=== PATIENT | female | born 1970 | race Caucasian/White ===

== ENCOUNTER 2016-09-05 13:19 | Emergency (ER) | payer SELFPAY ==
[~2016-09-05] VITALS: Ht 172.7 cm; Wt 136.0 kg
[2016-09-05 13:27] VITALS: BP 139/82; PULSE 106; RESP 16; TEMP 98.5; O2SAT 97
--- NOTE | 2016-09-05 13:43 | PD ---
HPI Chief Complaint: Abdominal Pain Time Seen by Provider: 13:32 Travel History International Travel<30 days: No Contact w/Intl Traveler<30days: No Traveled to known affect area: No History of Present Illness HPI 46 y/o female presents with constipation for which she took enema, Gas-X and other [id number] constipation medications that resulted in her having a bowel movement and now diarrhea. She states then she got nauseous and threw up and is now having lower abdominal pain. She went to an urgent care and was referred here. Quality pain is sharp. Location is lower. Severity is severe per patient. Quality is crampy. Duration is couple of days. PFSH Past Medical History Medical History: Denies Significant Hx ?: Not Past Surgical History Cholecystectomy: Yes Hysterectomy: Yes Social History Tobacco Use: No Allergies-Medications (Allergen,Severity, Reaction): Coded Allergies: Percocet (Verified Allergy, Unknown, Itching, 09/05/16) Reported Meds & Prescriptions Reported Meds & Active Scripts Active Phenergan (Promethazine HCl) 25 Mg Tablet 25 Mg PO Q6H PRN Flagyl (Metronidazole) 500 Mg Tab 500 Mg PO BID 7 Days Ciprofloxacin (Ciprofloxacin HCl) 500 Mg Tab 500 Mg PO BID 7 Days Review of Systems Except as stated in HPI: all other systems reviewed are Neg Physical Exam Narrative GENERAL: Well-nourished, well-developed patient. SKIN: Warm and dry. HEAD: Normocephalic and atraumatic. EYES: No injection or drainage. ENT: No nasal drainage noted. NECK: Supple, trachea midline. CARDIOVASCULAR: Regular rate and rhythm RESPIRATORY: no increased effort. No accessory muscle use. GASTROINTESTINAL: Abdomen soft, ttp in suprapubic area, nondistended. NEUROLOGICAL: Awake and alert. Motor and sensory grossly within normal limits. Normal speech. Data Data Last Documented VS Vital Signs Date Time Temp Pulse Resp B/P Pulse Ox O2 Delivery O2 Flow Rate FiO2 09/05/16 14:35 16 09/05/16 13:27 98.5 106 139/82 97 Orders Complete Blood Count With Diff (09/05/16 13:32) Comprehensive Metabolic Panel (09/05/16 13:32) Urinalysis - C+S If Indicated (09/05/16 13:32) Lipase (09/05/16 13:32) Iv Access Insert/Monitor (09/05/16 13:32) Ondansetron Inj (Zofran Inj) (09/05/16 13:45) Sodium Chlor 0.9% 1000 Ml Inj (Ns 1000 M (09/05/16 13:45) Ketorolac Inj (Toradol Inj) (09/05/16 13:45) Ct Abd/Pel W/O Iv Contrast (09/05/16 ) Labs Laboratory Tests Test 09/05/16 09/05/16 13:45 14:00 White Blood Count 14.6 TH/MM3 Red Blood Count 4.18 MIL/MM3 Hemoglobin 13.2 GM/DL Hematocrit 38.5 % Mean Corpuscular Volume 92.0 FL Mean Corpuscular Hemoglobin 31.5 PG Mean Corpuscular Hemoglobin 34.3 % Concent Red Cell Distribution Width 12.6 % Platelet Count 302 TH/MM3 Mean Platelet Volume 7.7 FL Neutrophils (%) (Auto) 75.7 % Lymphocytes (%) (Auto) 14.3 % Monocytes (%) (Auto) 5.3 % Eosinophils (%) (Auto) 1.2 % Basophils (%) (Auto) 3.5 % Neutrophils # (Auto) 11.0 TH/MM3 Lymphocytes # (Auto) 2.1 TH/MM3 Monocytes # (Auto) 0.8 TH/MM3 Eosinophils # (Auto) 0.2 TH/MM3 Basophils # (Auto) 0.5 TH/MM3 CBC Comment DIFF FINAL Differential Comment Sodium Level 140 MEQ/L Potassium Level 3.5 MEQ/L Chloride Level 105 MEQ/L Carbon Dioxide Level 28.0 MEQ/L Anion Gap 7 MEQ/L Blood Urea Nitrogen 7 MG/DL Creatinine 0.92 MG/DL Estimat Glomerular Filtration 66 ML/MIN Rate Random Glucose 84 MG/DL Calcium Level 8.7 MG/DL Total Bilirubin 1.0 MG/DL Aspartate Amino Transf 20 U/L (AST/SGOT) Alanine Aminotransferase 35 U/L (ALT/SGPT) Alkaline Phosphatase 76 U/L Total Protein 7.2 GM/DL Albumin 3.2 GM/DL Lipase 79 U/L Urine Collection Type CLEAN CATCH Urine Color STRAW Urine Turbidity CLEAR Urine pH 6.5 Urine Specific [place] 1.005 Urine Protein NEG mg/dL Urine Glucose (UA) NEG mg/dL Urine Ketones NEG mg/dL Urine Occult Blood NEG Urine Nitrite NEG Urine Bilirubin NEG Urine Leukocyte Esterase MOD Urine WBC 3-5 /hpf Urine Squamous Epithelial 6-8 /hpf Cells Urine Transitional Epithelial 0-2 /hpf Cells Microscopic Urinalysis Comment CULT NOT INDICATED MDM Medical Decision Making Medical Screen Exam Complete: Yes Emergency Medical Condition: Yes Medical Record Reviewed: Yes (pm[facility] confirmed) Interpretation(s) CBC & BMP Diagram 09/05/16 13:45 ct abdomen pelvis with diverticulitis Differential Diagnosis Colitis, stone, ileus, constipation, diverticulitis Narrative Course Will check blood work, urinalysis, CT scan and dose with Toradol and Zofran and reevaluate ED workup with diverticulitis,Patient denies any new complaints and states that they are feeling better. no emesis here, Patient happy with care, all questions answered. Patient knows that follow up is incumbent on them and to return to the emergency room immediately if new or worsening symptoms develop. Patient given strict return precautions, vitals reviewed and are normal, agrees to further workup as an outpatient. Diagnosis Primary Impression: Diverticulitis Qualified Code: K57.92 - Diverticulitis of intestine without perforation or abscess without bleeding, unspecified part of intestinal tract Patient Instructions: General Instructions Additional Instructions: return as needed, tylenol as needed, follow with primary this week for recheck Med/Other Pt SpecificInfo: Prescription(s) given Scripts Promethazine (Phenergan)25 Mg [id number] Mg PO Q6H PRN (NAUSEA OR VOMITING) #10 TAB Ref 0 Prov:Christi Dias MD 09/05/16 Metronidazole (Flagyl)500 Mg [id number] Mg PO BID 7 Days Prov:Christi Dias MD 09/05/16 Ciprofloxacin 500 Mg [id number] Mg PO BID 7 Days Prov:Christi Dais MD 09/05/16 Disposition: 01 DISCHARGE HOME Condition: Stable Christi Dias MD Sep 05, 2016 13:43
[2016-09-05] MEDS ORDERED: KETOROLAC TROMETHAMINE 30 MG/ML (IVP) VIAL IV PUSH ONE (13:45)
[2016-09-05] MEDS ORDERED: SODIUM CHLOR 0.9% 1000 ML INJ 1,000 ML IV ONE (13:45)
[2016-09-05] MEDS ORDERED: ONDANSETRON HCL 4 MG/2 ML VIAL IV PUSH ONE (13:45)
[2016-09-05 13:56] LABS: BASOPHIL # 0.5 TH/MM3 (0-0.2); BASOPHIL % 3.5 % (0.0-2.0); EOSINOPHIL # 0.2 TH/MM3 (0-0.4); EOSINOPHIL % 1.2 % (0.0-4.0); HEMATOCRIT 38.5 % (35.0-46.0); HEMO FLAGS DIFF FINAL; LYMPH % 14.3 % (9.0-44.0); LYMPHOCYTE # 2.1 TH/MM3 (1.0-4.8); MEAN CORPUSCULAR HEMOGLOBIN 31.5 PG (27.0-34.0); MEAN CORPUSCULAR HGB CONC 34.3 % (32.0-36.0); MONO % 5.3 % (0.0-8.0); NEUT % 75.7 % (16.0-70.0); PLATELET COUNT 302 TH/MM3 (150-450); RED BLOOD COUNT 4.18 MIL/MM3 (4.00-5.30); RED CELL DISTRIBUTION WIDTH 12.6 % (11.6-17.2); WHITE BLOOD COUNT 14.6 TH/MM3 (4.0-11.0)
[2016-09-05 14:05] LABS: CHLORIDE 105 MEQ/L (98-107); POTASSIUM 3.5 MEQ/L (3.5-5.1); SODIUM (NA) 140 MEQ/L (136-145)
[2016-09-05 14:08] LABS: ANION GAP 7 MEQ/L (5-15)
[2016-09-05 14:11] LABS: ALT (GPT) 35 U/L (10-53); AST (GOT) 20 U/L (15-37); GLOMERULAR FILTRATION RATE 66 ML/MIN (>89)
[2016-09-05 14:12] LABS: BLOOD UREA NITROGEN 7 MG/DL (7-18)
[2016-09-05 14:14] LABS: ALKALINE PHOSPHATASE 76 U/L (45-117)
[2016-09-05 14:21] LABS: BLOOD, URINE NEG (NEG); GLUCOSE,URINE NEG (NEG); KETONE, URINE NEG (NEG); NITRITE,URINE NEG (NEG); PH, URINE 6.5 (5.0-8.5)
--- NOTE | 2016-09-05 14:33 | RADRPT ---
EXAM DATE/TIME: 09/05/2016 14:06 [facility] COMPARISON: No previous studies available for comparison. INDICATIONS : Lower abdominal pain. Constipation, then diarrhea after and enema. ORAL CONTRAST: No oral contrast ingested. RADIATION DOSE: 22.21 CTDIvol (mGy) MEDICAL HISTORY : None SURGICAL HISTORY : Cholecystectomy. Hysterectomy. ENCOUNTER: Initial ACUITY: 2 days PAIN SCALE: 7/10 LOCATION: Bilateral lower quadrant TECHNIQUE: Volumetric scanning of the abdomen and pelvis was performed. Using automated exposure control and ad justment of the mA and/or kV according to patient size, radiation dose was kept as low as reasonably achievable to obtain optimal diagnostic quality images. DICOM format image data is available electro nically for review and comparison. The lack of IV contrast limits the diagnosis for certain organ pa thology. FINDINGS: LOWER LUNGS: The visualized lower lungs are clear. LIVER: Homogeneous density without lesion. There is no dilation of the biliary tree. No gallbladder, surgi gerhard removed. Mild fatty infiltration liver.. SPLEEN: Normal size without lesion. PANCREAS: Within normal limits. KIDNEYS: Normal in size and shape. There is no mass, stone, or hydronephrosis. ADRENAL GLANDS: Within normal limits. VASCULAR: There is no aortic aneurysm. BOWEL/MESENTERY: The bowel gas pattern is within normal limits. There is stool throughout the colon. No abnormal dilat ation is seen. There is diffuse inflammatory changes adjacent to the sigmoid colon suggestive of dive rticulitis. There is several small scattered diverticula along the sigmoid colon and descending colon . No free fluid or loculated fluid collections are demonstrated. ABDOMINAL WALL: Within normal limits. RETROPERITONEUM: There is no lymphadenopathy. BLADDER: No wall thickening or mass. REPRODUCTIVE: Within normal limits. INGUINAL: There is no lymphadenopathy or hernia. MUSCULOSKELETAL: Within normal limits for patient age. CONCLUSION: Diverticulitis involving the sigmoid colon. Rosendo Hankins MD on September 05, 2016 at 14:27 Board Certified Radiologist. This report was verified electronically.
[2016-09-05 14:35] VITALS: RESP 16
[2016-09-05 14:39] LABS: METHOD OF COLLECTION CLEAN CATCH; URINE COLOR STRAW (YELLW/STRAW)
[2016-09-05] MEDS ORDERED: CIPR500T2 PO (14:39)
[2016-09-05] MEDS ORDERED: METR-1 PO (14:39)
[2016-09-05] MEDS ORDERED: PROM25TA10 PO (14:41)
[2016-09-05 14:42] LABS: TRANSITIONAL EPI CELLS, URINE 0-2 /hpf
[2016-09-05 14:44] LABS: COMMENT (UR) CULT NOT INDICATED; CULTURE IF INDICATED CULT NOT INDICATED
[2016-09-05 15:24] VITALS: BP 134/79
== END 2016-09-05 15:25 | disposition home or self-care (01) ==
LOC: PHED 13:19
DX: K57.92 Diverticulitis of intestine, part unspecified, without perforation or abscess without bleeding (principal); R11.2 Nausea with vomiting, unspecified
CPT/HCPCS: 74176; 80053; 81001; 83690; 85025; 96361; 96374; 96375; 99285; J1885; J2405; J7030